=== PATIENT | male | born 1945 | race Caucasian/White ===

== ENCOUNTER 2018-09-26 17:47 | Emergency (ER) | payer MEDICARE ==
[2018-09-26 19:01] LABS: INR 1.2; PROTHROMBIN TIME 12.6 SECONDS (9.7-12.2)
[2018-09-26 19:02] LABS: BASO % 0.4 % (0.0-2.0); EOS # 0.1 K/uL (0.0-0.7); EOS % 0.9 % (0.0-4.0); HEMOGLOBIN 13.8 g/dL (12.0-18.0); LYMPH # 6.1 K/uL (1.0-4.3); LYMPH % 69.4 % (20.0-40.0); MEAN CELL VOLUME 101.5 fL (80.0-94.0); MEAN CORPUSCULAR HEMOGLOBIN 34.8 pg (27.0-31.0); MEAN CORPUSCULAR HGB CONC 34.2 g/dL (33.0-37.0); MEAN PLATELET VOLUME 9.7 fL (7.2-11.7); MONO # 0.7 K/uL (0.0-0.8); MONO % 7.5 % (0.0-10.0); NEUT # 1.9 K/uL (1.8-7.0); NEUT % 21.8 % (50.0-75.0); NRBC % 0.6 % (0.0-2.0); RBC 3.97 Mil/uL (4.40-5.90); RED CELL DISTRIBUTION WIDTH 13.6 % (11.5-14.5); WHITE BLOOD COUNT 8.8 K/uL (4.8-10.8)
[2018-09-26 19:09] LABS: ALB/GLOB RATIO 1.2 (1.0-2.1); ALBUMIN 4.4 g/dL (3.5-5.0); ALT/SGPT 24 U/L (21-72); AST/SGOT 29 U/L (17-59); BLOOD UREA NITROGEN 17 mg/dL (9-20); CALCIUM 9.2 mg/dl (8.6-10.4); GFR NON-AFRICAN AMERICAN > 60
--- NOTE | 2018-09-26 19:17 | C.PDOC ---
History Of Present Illness 73 y/o male with a PMHx of HTN and s/p pacemaker, presents to the ED complaining of palpitations and SOB that began today. Patient states he fell asleep on the sofa and awoke with symptoms. He denies any chest pain, cough, fever, or chills. Time Seen by Provider: 09/26/18 18:50 Chief Complaint (Nursing): Shortness Of Breath History Per: Patient History/Exam Limitations: no limitations Onset/Duration Of Symptoms: Hrs Current Symptoms Are (Timing): Still Present Past Medical History Reviewed: Historical Data, Nursing Documentation, Vital Signs Vital Signs: Last Vital Signs Temp 98 F 09/26/18 19:04 Pulse 73 09/26/18 19:04 Resp 18 09/26/18 19:04 BP 138/76 09/26/18 19:04 Pulse Ox 97 09/26/18 19:04 - Medical History PMH: HTN, Hypercholesterolemia Surgical History: Pacemaker - [facility] APPLICATION OF SPLINT (07/25/14) Family History: States: Unknown Family Hx - Social History Hx Tobacco Use: No Hx Alcohol Use: No Hx Substance Use: No - Immunization History Hx Tetanus Toxoid Vaccination: No Hx Influenza Vaccination: No Hx Pneumococcal Vaccination: No Review Of Systems Except As Marked, All Systems Reviewed And Found Negative. Constitutional: Negative for: Fever, Chills Cardiovascular: Positive for: Palpitations. Negative for: Chest Pain Respiratory: Positive for: Shortness of Breath Gastrointestinal: Negative for: Nausea, Vomiting Neurological: Negative for: Headache, Dizziness Physical Exam - Physical Exam Appears: Non-toxic, No Acute Distress Skin: Normal Color, Warm, Dry Head: Atraumatic, Normacephalic Eye(s): bilateral: Normal Inspection, PERRL, EOMI Oral Mucosa: Moist Neck: Normal ROM, Supple Chest: Symmetrical, Other (Pacemaker in place) Cardiovascular: Rhythm Irregular, Other (Normal S1, S2) Respiratory: No Rales, No Rhonchi, No Wheezing, Other (lungs clear bilaterally, very soft) Gastrointestinal/Abdominal: Soft, No Tenderness, No Distention Extremity: Bilateral: Atraumatic, Normal Color And Temperature, Normal ROM, Other (no pitting edema) Pulses: Left Dorsalis Pedis: Normal, Right Dorsalis Pedis: Normal Neurological/Psych: Oriented x3, Normal Speech ED Course And Treatment - Laboratory Results Result Diagrams: 09/26/18 18:50 09/26/18 18:50 O2 Sat by Pulse Oximetry: 97 (RA) Pulse Ox Interpretation: Normal Medical Decision Making Medical Decision Making: Impression: Palpitations, r/o CHF Plan: - Labs - EKG - Chest x-ray EKG: A Fib at 76 bpm Left axis deviation CXR, reviewed by me, shows no acute changes. Labs reviewed, negative trop. Pro-BNP 637 Discussed findings with patient. Patient reports symptoms have resolved, and he feels comfortable going home. Advised to followup with PMD or return to the ER if worse. 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 Instructions: Palpitations Forms: [facility] ([place]er) - POA Present On Arrival: None - Clinical Impression Clinical Impression: Palpitations - Scribe Statement The provider has reviewed the documentation as recorded by the Sky Hudson Provider Attestation: All medical record entries made by the Sky were at my direction and personally dictated by me. I have reviewed the chart and agree that the record accurately reflects my personal performance of the history, physical exam, medical decision making, and the department course for this patient. I have also personally directed, reviewed, and agree with the discharge instructions and disposition.
[2018-09-26 20:45] VITALS: BP 147/61; PULSE 69; RESP 18; TEMP 98
[2018-09-26 20:46] VITALS: O2SAT 97
--- NOTE | 2018-09-27 15:40 | RAD ---
Date of service: 09/26/2018 PROCEDURE: CHEST RADIOGRAPH, 1 VIEW HISTORY: chest pain COMPARISON: None available. FINDINGS: LUNGS: Clear. PLEURA: No pneumothorax or pleural fluid seen. CARDIOVASCULAR: No aortic atherosclerotic calcification present. Normal heart size. Permanent pacemaker. OSSEOUS STRUCTURES: No significant abnormalities. VISUALIZED UPPER ABDOMEN: Normal. OTHER FINDINGS: None. IMPRESSION: No active disease.
--- NOTE | 2018-09-28 20:45 | CARD ---
APPROVED REPORT Date of service: 09/26/2018 EKG Measurement Heart [id number] <Conclusion> Atrial fibrillation Nonspecific ST abnormality Abnormal ECG
== END 2018-09-26 20:45 | disposition home or self-care (01) ==
LOC: C.ER 17:47
DX: R00.2 Palpitations (principal); E78.00 Pure hypercholesterolemia, unspecified; I10 Essential (primary) hypertension; Z95.0 Presence of cardiac pacemaker